=== PATIENT | male | born 1985 | race Two or more races ===

== ENCOUNTER 2023-03-16 22:12 | Emergency (ER) | payer SELFPAY ==
[~2023-03-16] VITALS: Ht 182.9 cm; Wt 75.0 kg
[2023-03-17 01:59] VITALS: BP 134/70
== END 2023-03-17 02:02 | disposition home or self-care (01) ==
LOC: ER 22:12
DX: Z03.821 Encounter for observation for suspected ingested foreign body ruled out (principal)